=== PATIENT | male | born 1955 | race Caucasian/White ===

== ENCOUNTER → 2020-12-16 | Outpatient (CLI) | payer OTHER ==
[~2020-12-16] MED LIST: IBUP-2076 PO; OMEP20TA2 PO
== END | disposition home or self-care (01) ==
LOC: RAH 14:42
PROVIDERS: ATTEND Family Medicine
DX: Z13.6 Encounter for screening for cardiovascular disorders (principal)
CPT/HCPCS: 75571

== ENCOUNTER → 2021-01-05 | Outpatient (CLI) | payer MEDICARE ==
[~2021-01-05] VITALS: Ht 177.8 cm; Wt 92.1 kg
[~2021-01-05] MED LIST changes: +REGADENOSON 0.4 MG/5 ML PF SYG IVP SCH
== END | disposition home or self-care (01) ==
LOC: SHCH 08:21
PROVIDERS: ATTEND Internal Medicine Cardiovascular Disease
DX: I25.10 Atherosclerotic heart disease of native coronary artery without angina pectoris (principal); R06.02 Shortness of breath; I10 Essential (primary) hypertension
CPT/HCPCS: 78452; 93017; 96374; A9500 ×2

== ENCOUNTER 2021-02-16 06:00 | Day surgery (SDC) | payer MEDICARE ==
[2021-02-13 10:50] LABS: BASOPHILS % (AUTO) 0.8 % (0.0-5.0); EOSINOPHILS % (AUTO) 2.9 % (0.0-8.0); HEMATOCRIT 41.8 % (42-54); LYMPHOCYTES % (AUTO) 27.7 % (21.0-51.0); MEAN CORPUSCULAR HEMOGLOBIN 28.8 pg (27.0-33.0); MEAN CORPUSCULAR HGB CONC 32.8 g/dL (32.0-36.0); MEAN CORPUSCULAR VOLUME 87.8 fL (79-99); MONOCYTES % (AUTO) 6.7 % (3.0-13.0); NEUTROPHILS % (AUTO) 61.7 % (40.0-77.0); PLATELET COUNT (AUTO) 250 K/uL (130-400); RED BLOOD CELL COUNT(AUTO) 4.76 MIL/uL (4.50-6.20); RED CELL DISTRIBUTION WIDTH 12.5 % (11.0-15.5); WHITE BLOOD COUNT (AUTO) 6.1 K/uL (4.8-10.8)
[2021-02-13 10:55] LABS: APPEARANCE,URINE Clear (CLEAR); BILIRUBIN,URINE Negative (NEGATIVE); COLOR,URINE Yellow (YELLOW); GLUCOSE, URINE (UA) Negative (NEGATIVE); KETONES,URINE Negative (NEGATIVE); LEUKOCYTE ESTERASE ,URINE Negative (NEGATIVE); NITRATE,URINE Negative (NEGATIVE); OCCULT BLOOD,URINE Negative (NEGATIVE); PROTEIN,URINE Negative (NEGATIVE)
[2021-02-13 11:02] LABS: CREATININE 1.1 mg/dL (0.5-1.5); POTASSIUM 4.6 mmol/L (3.5-5.1)
[2021-02-13 11:04] LABS: PROTHROMBIN TIME 10.9 SEC (9.6-11.6)
[2021-02-13 11:05] LABS: PARTIAL THROMBOPLASTIN TIME 27.3 SEC (26.3-35.5)
[~2021-02-16] VITALS: Ht 177.8 cm; Wt 91.4 kg
[2021-02-16] VITALS (10 sets, daily range): BP systolic 135–177; BP diastolic 82–99
[~2021-02-16 06:00] MED LIST changes: +ATOR40TA71 PO; -IBUP-2076 PO; +LOSA50TA64 PO; +METO-391 PO; -OMEP20TA2 PO; -REGADENOSON 0.4 MG/5 ML PF SYG IVP SCH
[2021-02-16] MEDS ORDERED: SODIUM CHLORIDE 0.9% 1000ML 1,000 ML IV ONE (06:11)
[2021-02-16] MEDS ORDERED: HEPARIN SODIUM 1000UNIT/ML 10ML VIAL ONE (07:13)
[2021-02-16] MEDS ORDERED: IOHEXOL 350 MG/ML 100ML INFUS..BTL IV ONE (07:13)
[2021-02-16] MEDS ORDERED: LIDOCAINE HCL 400MG/20ML VIAL ONE (07:13)
[2021-02-16] MEDS ORDERED: IOHEXOL-350 50ML VIAL IV ONE (07:13)
[2021-02-16] MEDS ORDERED: MIDAZOLAM HCL 1 MG/ML 2ML VIAL ONE (07:29)
== END 2021-02-16 12:10 | disposition home or self-care (01) ==
LOC: DAH 06:00
PROVIDERS: ATTEND Internal Medicine Cardiovascular Disease
DX: I25.118 Atherosclerotic heart disease of native coronary artery with other forms of angina pectoris (principal); I10 Essential (primary) hypertension; E78.5 Hyperlipidemia, unspecified; Z79.899 Other long term (current) drug therapy; Z98.890 Other specified postprocedural states; Z79.01 Long term (current) use of anticoagulants
CPT/HCPCS: 36415; 71045; 80048; 81003; 85025; 85610; 85730; 93005; 93458; A4215; A4216; A4221; A4222; A4223 ×3; A4606; A4663; C1760; C1894; J1644; J2250; J3490; J7030; Q9965; Q9967 ×2; 99156; 99157

== ENCOUNTER → 2023-12-20 | Outpatient (CLI) | payer MEDICARE | END | disposition home or self-care (01) | LOC: RAH 13:39 | PROVIDERS: ATTEND Family Medicine | DX: M47.816 Spondylosis without myelopathy or radiculopathy, lumbar region (principal); M48.062 Spinal stenosis, lumbar region with neurogenic claudication; M51.37 Other intervertebral disc degeneration, lumbosacral region; M51.26 Other intervertebral disc displacement, lumbar region; M71.38 Other bursal cyst, other site | CPT/HCPCS: 72148 ==

== ENCOUNTER 2024-04-20 05:57 | Day surgery (SDC) | payer MEDICARE ==
[2024-04-18 12:33] VITALS: BP 133/83; PULSE 79; RESP 18
[2024-04-18 12:36] LABS: BASOPHILS # (AUTO) 0.06 K/uL (0.00-0.20); BASOPHILS % (AUTO) 0.7 % (0.0-5.0); EOSINOPHILS # (AUTO) 0.23 K/uL (0.00-0.70); EOSINOPHILS % (AUTO) 2.8 % (0.0-8.0); HEMATOCRIT 43.7 % (42-54); IMMATURE GRANULOCYTE ABSOLUTE 0.02 K/uL (0-1); LYMPHOCYTES # (AUTO) 1.9 K/uL (1.0-4.8); LYMPHOCYTES % (AUTO) 22.6 % (21.0-51.0); MEAN CORPUSCULAR HEMOGLOBIN 29.7 pg (27.0-33.0); MEAN CORPUSCULAR HGB CONC 34.3 g/dL (32.0-36.0); MEAN CORPUSCULAR VOLUME 86.5 fL (79-99); MONOCYTES # (AUTO) 0.6 K/uL (0.1-1.0); MONOCYTES % (AUTO) 7.3 % (3.0-13.0); NEUTROPHILS # (AUTO) 5.5 K/uL (1.8-7.7); NEUTROPHILS % (AUTO) 66.4 % (40.0-77.0); PLATELET COUNT (AUTO) 272 K/uL (130-400); RED BLOOD CELL COUNT(AUTO) 5.05 MIL/uL (4.50-6.20); RED CELL DISTRIBUTION WIDTH 12.1 % (11.0-15.5); WHITE BLOOD COUNT (AUTO) 8.3 K/uL (4.8-10.8)
[2024-04-18 12:41] LABS: APPEARANCE,URINE CLEAR (CLEAR); BILIRUBIN,URINE NEGATIVE (NEGATIVE); COLOR,URINE YELLOW (YELLOW); GLUCOSE, URINE (UA) NEGATIVE (NEGATIVE); KETONES,URINE NEGATIVE (NEGATIVE); LEUKOCYTE ESTERASE ,URINE NEGATIVE Leu/uL (NEGATIVE); NITRATE,URINE NEGATIVE (NEGATIVE); OCCULT BLOOD,URINE NEGATIVE (NEGATIVE); PH,URINE 5.5 (5.0-8.0); PROTEIN,URINE NEGATIVE (NEGATIVE); UROBILINOGEN,URINE 0.2 mg/dL (0.2-1.0)
[2024-04-18 12:43] LABS: ADD UA MICROSCOPIC NO
[2024-04-18 12:45] LABS: CREATININE 1.1 mg/dL (0.5-1.3); POTASSIUM 4.3 mmol/L (3.5-5.1)
[2024-04-18 12:49] LABS: INR 0.96 (0.85-1.15); PROTHROMBIN TIME 10.4 SEC (9.6-11.6)
[2024-04-18 12:50] LABS: PARTIAL THROMBOPLASTIN TIME 26.2 SEC (26.3-35.5)
[2024-04-18 13:06] LABS: B-TYPE NATRIURETIC PEPTIDE 12 pg/mL (0-100)
[2024-04-20] VITALS (13 sets, daily range): BP systolic 114–158; BP diastolic 74–89; PULSE 55–79; RESP 16–19
[~2024-04-20] VITALS: Ht 177.8 cm; Wt 93.8 kg
[~2024-04-20 05:57] MED LIST changes: +AMLO-258 PO; -ATOR40TA71 PO; +BUSP15TA3 PO; +LOSA100T59 PO; -LOSA50TA64 PO; -METO-391 PO
[2024-04-20] MEDS ORDERED: LIDOCAINE HCL 400MG/20ML VIAL ONE (07:10)
[2024-04-20] MEDS ORDERED: IOHEXOL 350 MG/ML 100ML INFUS..BTL IV ONE (07:14)
[2024-04-20] MEDS ORDERED: MIDAZOLAM HCL 1 MG/ML 2ML VIAL ONE (07:31)
[2024-04-20] MEDS ORDERED: FENTANYL CITRATE PF 50 MCG/1 ML 2ML VIAL ONE (07:31)
[2024-04-20] MEDS ORDERED: HEPARIN 10,000 UNIT/10ML (1,000 UNIT/ML) VIAL ONE (07:52)
[2024-04-20] MEDS ORDERED: BIVALIRUDIN 250 MG/VIAL IV ONE (07:52)
== END 2024-04-20 13:16 | disposition home or self-care (01) ==
LOC: DAH 05:57
PROVIDERS: ATTEND Internal Medicine Cardiovascular Disease
DX: I25.118 Atherosclerotic heart disease of native coronary artery with other forms of angina pectoris (principal); R94.39 Abnormal result of other cardiovascular function study; E78.5 Hyperlipidemia, unspecified; I10 Essential (primary) hypertension; M10.9 Gout, unspecified; Z88.0 Allergy status to penicillin; Z88.1 Allergy status to other antibiotic agents; Z79.01 Long term (current) use of anticoagulants; Z79.899 Other long term (current) drug therapy
CPT/HCPCS: 80048; 83880; 85025; 85610; 85730; 81003; 36415; 71045; 93005; 93458; C1894; C1760; Q9965; J3490; J2250; J1644; Q9967; A4215; A4222; A4221; A4663; A4216; A4606; A4223 ×3; 99156; 99157; J0583; J3010

== ENCOUNTER → 2024-07-13 | Outpatient (CLI) | payer MEDICARE ==
[~2024-07-13] MED LIST changes: +AEC81 PO; -AMLO-258 PO; -LOSA100T59 PO
--- NOTE | 2024-07-13 18:40 | HMCSR ---
APPROVED REPORT Right Upper Extremity Venous Study for DVT. Vein Imaging IJV (L): Normal flow, augmentation and compression. No evidence of DVT. SCV (L): Normal flow, augmentation and compression. No evidence of DVT.Normal flow, augmentation and compression. No evidence of DVT. Axillary (L): Normal flow, augmentation and compression. No evidence of DVT. Brachial (L): Normal flow, augmentation and compression. No evidence of DVT. Basilic (L): Compressible, Cephalic (L): Compressible Radial (L): Normal flow, augmentation and compression. No evidence of DVT. Ulnar (L): Normal flow, augmentation and compression. No evidence of DVT. Technologist Impression The deep veins of the right upper extremity appear patent and compressible without evidence of thromb us. Asymmetric doppler waveforms noted on the contralateral side compared to the right. Conclusion As above. Conclusion As above.
== END | disposition home or self-care (01) ==
LOC: SHCH 14:46
PROVIDERS: ATTEND Internal Medicine Cardiovascular Disease
DX: I72.4 Aneurysm of artery of lower extremity (principal); I82.621 Acute embolism and thrombosis of deep veins of right upper extremity; E78.5 Hyperlipidemia, unspecified; R06.00 Dyspnea, unspecified; R94.39 Abnormal result of other cardiovascular function study; I25.118 Atherosclerotic heart disease of native coronary artery with other forms of angina pectoris; I10 Essential (primary) hypertension
CPT/HCPCS: 93971

== ENCOUNTER → 2024-07-27 | Outpatient (CLI) | payer MEDICARE ==
--- NOTE | 2024-07-30 08:13 | HMCSR ---
APPROVED REPORT EXAM: Two-dimensional and M-mode echocardiogram with Doppler and color Doppler. INDICATION ICD: I20.8 Other forms of angina pectoris Surgery/Intervention CABG: Date: 2023 2D Dimensions RVDd4.3 cmLVEF(%)40.3 (>50%)LVED Vol(simp.)175.0 mL IVSd1.0 (0.7-1.1cm)FS(%)20 %LVES Vol(simp.)114.0 mL LVDd5.0 (3.8-5.6cm)Ao Root(2D)3.9 (2.0-3.7cm)LVEF(%, simp.)35 % PWd1.0 (0.7-1.1cm)LVOT diam2.2 (1.8-2.4cm)LA ESV INDEX (BP)26.06 mL/m2 LVDs4.0 (2.5-4.0cm)IVC diam2.1 cm Aortic Valve AoV Vmax1.3 m/[place] GR6.6 mmHgLVOT Vmax0.8 m/s AoV VTI0.2 mAo Mean GR3.8 mmHgLVOT VTI0.15 m LOBO (VMAX)2.4 cm2AVA (VTI) 2.4 cm2 Mitral Valve MV E Vmax38.8 cm/sDECEL Edra774 ms MV A Vmax74.0 cm/sP 1/2 T96 ms E/A ratio0.5MVA (PHT)2.3 cm2 MR Max PG29 mmHg TDI E/E' Medial6.7E/E' Lateral3.9 Pulmonary Valve PV Vmax1.0 m/sPV VTI0.18 mPV Mean GR2 mmHg PV Peak GR3.8 mmHg Tricuspid Valve RAP (EST) 8 mmHg Left Ventricle Left ventricular cavity size is normal.. Hypokinetic anterior, apical and septal hernandez. There is norm al left ventricular wall thickness. LVEF is 30-35%. Grade 1 diastolic dysfunction Right Ventricle The right ventricle is mildly dilated. Right ventricular systolic function is moderately to severely reduced. Atria The left atrium size is normal. The right atrium size is normal. Aortic Valve Aortic valve is trileaflet. Aortic valve leaflets are sclerotic but open well. Trace aortic regurgita tion. There is no aortic valvular stenosis. Mitral Valve Mitral valve leaflets are mildly sclerotic but open well. Mitral regurgitation is trace to mild. Ther e is no mitral valve stenosis. Tricuspid Valve The tricuspid valve leaflets appear normal. There is trace tricuspid regurgitation. Pulmonic Valve The pulmonic valve leaflets are thin and pliable; valve motion is normal. There is trace pulmonic mark vular regurgitation. Great Vessels Aortic root is mildly dilated. IVC is dilated and collapses >50% with inspiration. Pericardium No pericardial effusion. Conclusion LVEF is 30-35%. Hypokinetic anterior, apical and septal hernandez. Mitral regurgitation is trace to mild.
== END | disposition home or self-care (01) ==
LOC: SHCH 15:13
PROVIDERS: ATTEND Internal Medicine Cardiovascular Disease
DX: I08.0 Rheumatic disorders of both mitral and aortic valves (principal); I20.89 Other forms of angina pectoris; Z95.1 Presence of aortocoronary bypass graft
CPT/HCPCS: 93306

== ENCOUNTER → 2024-07-31 | Outpatient (CLI) | payer MEDICARE ==
[2024-07-31 12:25] LABS: CREATININE 1.2 mg/dL (0.5-1.3); POTASSIUM 4.5 mmol/L (3.5-5.1)
== END | disposition home or self-care (01) ==
LOC: LAB 08:09
PROVIDERS: ATTEND Internal Medicine Cardiovascular Disease
DX: I10 Essential (primary) hypertension (principal)
CPT/HCPCS: 36415; 80048

== ENCOUNTER 2024-08-10 09:32 | Day surgery (SDC) | payer MEDICARE ==
[2024-08-09 13:32] VITALS: BP 100/65; PULSE 75; RESP 18; TEMP 97.7
[2024-08-09 13:34] LABS: BASOPHILS # (AUTO) 0.06 K/uL (0.00-0.20); BASOPHILS % (AUTO) 0.6 % (0.0-5.0); EOSINOPHILS # (AUTO) 0.15 K/uL (0.00-0.70); EOSINOPHILS % (AUTO) 1.6 % (0.0-8.0); HEMATOCRIT 44.3 % (42-54); IMMATURE GRANULOCYTE ABSOLUTE 0.04 K/uL (0-1); LYMPHOCYTES # (AUTO) 1.7 K/uL (1.0-4.8); LYMPHOCYTES % (AUTO) 18.2 % (21.0-51.0); MEAN CORPUSCULAR HEMOGLOBIN 27.9 pg (27.0-33.0); MEAN CORPUSCULAR HGB CONC 32.3 g/dL (32.0-36.0); MEAN CORPUSCULAR VOLUME 86.4 fL (79-99); MONOCYTES # (AUTO) 0.6 K/uL (0.1-1.0); MONOCYTES % (AUTO) 6.5 % (3.0-13.0); NEUTROPHILS # (AUTO) 6.7 K/uL (1.8-7.7); NEUTROPHILS % (AUTO) 72.7 % (40.0-77.0); PLATELET COUNT (AUTO) 303 K/uL (130-400); RED BLOOD CELL COUNT(AUTO) 5.13 MIL/uL (4.50-6.20); RED CELL DISTRIBUTION WIDTH 13.8 % (11.0-15.5); WHITE BLOOD COUNT (AUTO) 9.3 K/uL (4.8-10.8)
[2024-08-09 13:44] LABS: CREATININE 1.4 mg/dL (0.5-1.3); POTASSIUM 4.8 mmol/L (3.5-5.1)
[2024-08-09 13:46] LABS: INR 0.98 (0.85-1.15); PROTHROMBIN TIME 10.6 SEC (9.6-11.6)
[2024-08-09 13:48] LABS: PARTIAL THROMBOPLASTIN TIME 25.9 SEC (26.3-35.5)
[2024-08-10] VITALS (9 sets, daily range): BP systolic 107–120; BP diastolic 71–80; PULSE 67–71; RESP 16–17; TEMP 97.2–98.1
[~2024-08-10] VITALS: Ht 177.8 cm; Wt 88.0 kg
[~2024-08-10 09:32] MED LIST changes: +AMIO200T68 PO; +ATOR20TA65 PO; -BUSP15TA3 PO; +BUSP5TAB3 PO; +DAPA10TA PO; +FURO40TA5 PO; +METO-408 PO; +SACU1TAB PO; +SPIR25TA6 PO; +VANCOMYCIN 1G/250ML KIT 250 ML IV SCH
[2024-08-10] MEDS: 0.9%NACL 1000ML 1,000 ML IV SCH (11:08)
[2024-08-10] MEDS ORDERED: LIDOCAINE HCL 1% MDV 50ML VIAL ONE (14:08)
[2024-08-10] MEDS ORDERED: ceFAZolin SODIUM 1 GM VIAL ONE (14:09)
[2024-08-10] MEDS ORDERED: BUPIvacaine/PF 0.25% 30ML VIAL IJ ONE (14:09)
[2024-08-10] MEDS ORDERED: VANCOMYCIN 1G/250ML KIT 500 ML IV ONE (14:22)
[2024-08-10] MEDS ORDERED: MIDAZOLAM HCL 1 MG/ML 2ML VIAL ONE ×3 (14:42→14:57)
[2024-08-10] MEDS ORDERED: MEPERIDINE-PF 25 MG/ML SYG ONE ×3 (14:42→14:57)
[2024-08-10] MEDS ORDERED: TRAM50TA4 PO (15:57)
[2024-08-10] MEDS ORDERED: acetaMINOPHEN 500 MG TABLET PO PRN (16:00)
[2024-08-10] MEDS ORDERED: acetaMINOPHEN WITH coDEINE 1 TAB TAB PO PRN (16:00)
--- NOTE | 2024-08-10 17:56 | NUR ---
NOTIFIED DR. HORTON OF DRESSING HAVING BLOOD/SEROUS SANGUINEOUS BLOOD ON DRESSING, ORDERED TO CHANGE DRESSING. NO BLEEDING ON INSIDE OF DRESSING.
--- NOTE | 2024-08-10 21:44 | HMCIMG ---
CHEST 1VW CLINICAL HISTORY: s/p ICD COMPARISON: 05/24/2024 TECHNIQUE: Single view of the chest was obtained. FINDINGS: Lungs are clear. The cardiac size unremarkable. There is been interval placement of a pacemaker with interrupted leads. Again demonstrated is change prior median sternotomy. IMPRESSION: There is no identified complication status post pacemaker placement.
--- NOTE | 2024-08-12 17:02 | EKG ---
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1955 Requested By: HUGO HORTON Order Number: [id number] Reading MD: Leonel Rebolledo Measurements Intervals [place] Rate: 56 P: 37 ME: 222 QRS: -18 QRSD: 88 T: 54 QT: 470 QTc: 453 Interpretive Statements Sinus bradycardia with 1st degree AV block Low voltage QRS Inferior infarct , age undetermined Anterolateral infarct , age undetermined Compared to ECG 05/18/2024 20:16:02 First degree AV block now present Low QRS voltage now present Sinus tachycardia no longer present Myocardial infarct finding still present Electronically Signed On 08-12-2024 17:36:44 SCALE TESTER by Leonel Rebolledo Please click the below link to view image of tracing.
== END 2024-08-10 18:14 | disposition home or self-care (01) ==
LOC: DAH 09:32
PROVIDERS: ATTEND Internal Medicine Cardiovascular Disease
DX: I25.5 Ischemic cardiomyopathy (principal); I50.42 Chronic combined systolic (congestive) and diastolic (congestive) heart failure; I44.0 Atrioventricular block, first degree; I25.10 Atherosclerotic heart disease of native coronary artery without angina pectoris; E78.5 Hyperlipidemia, unspecified; M10.9 Gout, unspecified; Z85.46 Personal history of malignant neoplasm of prostate; I47.29 Other ventricular tachycardia; Z79.01 Long term (current) use of anticoagulants; Z95.1 Presence of aortocoronary bypass graft; Z98.890 Other specified postprocedural states; Z79.82 Long term (current) use of aspirin; Z79.899 Other long term (current) drug therapy
CPT/HCPCS: 80048; 85025; 85610; 85730; 36415; 33249; 71045; 93005; C1721; C1896; C1895; J7030; J0665; J2250 ×3; J3370; J2175 ×3; J3490; A4215; A6251; A4222; A4221; A4663; A4216; A6258; A4606; A4223 ×3; 99156; 99157; J0690

== ENCOUNTER → 2025-04-24 | Outpatient (CLI) | payer MEDICARE ==
[~2025-04-24] MED LIST changes: -AMIO200T68 PO; +AMIO200T73 PO; +TRAM50TA4 PO; -VANCOMYCIN 1G/250ML KIT 250 ML IV SCH
== END | disposition home or self-care (01) ==
LOC: RESP 18:37
PROVIDERS: ATTEND Internal Medicine Cardiovascular Disease
DX: R06.00 Dyspnea, unspecified (principal); Z79.899 Other long term (current) drug therapy
CPT/HCPCS: 94060; 94729

== ENCOUNTER 2025-05-16 14:12 | Emergency (ER) | payer MEDICARE ==
[~2025-05-16] VITALS: Ht 177.8 cm; Wt 92.5 kg
[2025-05-16 16:09] LABS: IMMATURE GRANULOCYTE ABSOLUTE 0.03 K/uL (0-1); NUCLEATED RED BLOOD CELLS 0.0 % (0.0-0.19); PLATELET COUNT (AUTO) 211 K/uL (130-400); RED BLOOD CELL COUNT(AUTO) 5.51 MIL/uL (4.50-6.20); RED CELL DISTRIBUTION WIDTH 12.7 % (11.0-15.5); WHITE BLOOD COUNT (AUTO) 9.1 K/uL (4.8-10.8)
[2025-05-16 16:23] LABS: CREATININE 1.3 mg/dL (0.5-1.3); GLOMERULAR FILTR. RATE CALC 59.0 mL/min (>90); GLUCOSE,RANDOM 103.0 mg/dL (70-105); SODIUM SERUM 138.0 mmol/L (136-145); UREA NITROGEN, BLOOD 27.0 mg/dL (7-18)
[2025-05-16 16:29] LABS: CREATINE KINASE, TOTAL 79.0 U/L (21-232)
--- NOTE | 2025-05-16 17:15 | HMCIMG ---
EXAM: CT Head Without IV contrast. CLINICAL HISTORY: POSSIBLE SEIZURE TECHNIQUE: Axial computed tomography images of the head/brain without intravenous contrast. COMPARISON: None provided. FINDINGS: BRAIN: No evidence of acute hemorrhage. No mass lesion. No CT evidence for acute territorial infarct. No midline shift or extra-axial collections. VENTRICLES: No hydrocephalus. ORBITS: The orbits are unremarkable. SINUSES AND MASTOIDS: The paranasal sinuses and mastoid air cells are clear. BONES: No fracture. SOFT TISSUES: Unremarkable. IMPRESSION: No acute intracranial abnormality. /[place]
[2025-05-16 17:30] VITALS: BP 133/89; PULSE 80; RESP 20; TEMP 97.9; O2SAT 99
[2025-05-16] MEDS: SODIUM ZIRCONIUM CYCLOSILICATE 5 GM POWD.PACK PO ONE (17:34)
--- NOTE | 2025-05-16 17:50 | ERN ---
General Chief Complaint: Other Problems Stated Complaint: POSSIBLE SEIZURE Time Seen by MD: 15:06 Time Seen by Midlevel: 15:06 Source: patient History of Present Illness Initial Comments Patient is a 70-year-old male presenting to the emergency department nonspecific complaints. According to the patient he had three episodes where he believes may potentially been a seizure. The latest episode occurred while he was driving. According to who is at bedside the patient was driving when he had a blank stare. However, the patient was responding to questions during this time and never had seizure-like activity. On arrival he reports feeling improved. Allergies: Coded Allergies: Quinolones (Unverified Allergy, Severe, ANGIOEDEMA, HIVES, 05/18/24) Penicillins (Unverified Allergy, Unknown, RASH, 05/18/24) Home Meds Active Scripts Tramadol Hcl (Tramadol HCl) 50 Mg Tablet, 50 MG PO Q6D PRN for PAIN, #15 TAB 0 Refills Prov:HUGO HORTON MD 08/10/24 Reported Medications Atorvastatin Calcium (Atorvastatin Calcium) 20 Mg Tablet, 20 MG PO DAILY, TAB 08/09/24 Dapagliflozin Propanediol (Farxiga) 10 Mg Tablet, 10 MG PO DAILY, TAB 08/09/24 Metoprolol Succinate (Metoprolol Succinate) 25 Mg Tab.er.24h, 12.5 MG PO DAILY, TAB 08/09/24 Amiodarone HCl (Amiodarone HCl) 200 Mg Tablet, 200 MG PO DAILY, TAB 08/09/24 Furosemide (Furosemide) 40 Mg Tablet, 40 MG PO DAILY, TAB 08/09/24 Sacubitril/Valsartan (Entresto 24 mg-26 mg Tablet) 24 Mg-26 Mg Tablet, 1 EACH PO BID, TAB 08/09/24 Spironolactone (Spironolactone) 25 Mg Tablet, 25 MG PO DAILY, TAB 08/09/24 Buspirone HCl (Buspirone HCl) 5 Mg Tablet, 2.5 MG PO BID, TAB 08/09/24 Aspirin (ASPIRIN 81 MG ECTAB) 81 Mg Ectab, 81 MG PO HS, TAB.EC 05/17/24 Past Medical History Past Medical History: Hypertension Past Surgical History: Other Surgical History Other: PROSTATES SX, ROS Dictation CONSTITUTIONAL: Negative except for HPI HEAD/FACE: Negative except for HPI EENT: Negative except for HPI RESPIRATORY: Negative except for HPI GASTROINTESTINAL/ABDOMINAL: Negative except for HPI GENITOURINARY: Negative except for HPI MUSCULOSKELETAL: Negative except for HPI INTEGUMENTARY: Negative except for HPI NEUROLOGICAL/PSYCH: Negative except for HPI HEMATOLOGIC/LYMPHATIC: Negative except for HPI All Systems Negative, Except as noted above. 13 point review of systems assessed and all negative except for above. Physical Exam Physical Exam Dictation Vital Signs reviewed General Appearance: Alert, oriented x 3, no acute distress, well developed, nourished. Head and Face: non-traumatic. Eyes: PERRL, pink conjunctivas, eyelid no trauma, anterior chamber with arcus senilis. Ears: Pinnas intact and no signs of trauma or erythema ear canals clear and no discharge TM no erythema Nose: No discharge, no bleeding. Oropharynx: Mouth normal, tongue pink, pharynx clear,no erythema, tonsils no exudates, no abscesses noted, mucous membrane moist Neck: Supple, non-tender, no thyromegaly, no masses, no JVD, no bruits Breast:Deferred Chest:No tenderness, no crepitus, no paradoxical movement, no retractions Lungs:Clear, well-ventilated, symmetric, no rales, no wheezing, no rhonchi, no stridor, good breath sounds bilaterally Heart: Regular rate, regular rhythm, no murmur, no gallops Vascular: no peripheral edema, Abdomen: Soft, positive bowel sounds, nondistended, no guarding, nontender, no rebound, no masses no hepatomegaly, no splenomegaly, no Goodrich's sign, no hernias. Rectal: Deferred Genital: Deferred Neurological: Normal speech, motor function intact, sensory function intact Musculoskeletal: Neck nontender, full range of motion, back nontender, full range of motion, Extremities: nontender, full range of motion Skin: Color pink, dry, no turgor, no rash, no lacerations, no abrasions, no contusions. Lymphatic: Deferred Results Laboratory and Microbiology Lab and Micro Result Laboratory Tests Test 05/16/25 16:02 White Blood Count 9.1 K/uL (4.8-10.8) Red Blood Count 5.51 MIL/uL (4.50-6.20) Hemoglobin 16.3 g/dL (14.0-18.0) Hematocrit 49.8 % (42-54) Mean Corpuscular Volume 90.4 fL (79-99) Mean Corpuscular Hemoglobin 29.6 pg (27.0-33.0) Mean Corpuscular Hemoglobin Concent 32.7 g/dL (32.0-36.0) Red Cell Distribution Width 12.7 % (11.0-15.5) Platelet Count 211 K/uL (130-400) Mean Platelet Volume 9.5 fL (7.5-10.5) Immature Granulocyte % (Auto) 0.3 % (0-1) Neutrophils (%) (Auto) 77.5 % (40.0-77.0) H Lymphocytes (%) (Auto) 15.4 % (21.0-51.0) L Monocytes (%) (Auto) 6.1 % (3.0-13.0) Eosinophils (%) (Auto) 0.4 % (0.0-8.0) Basophils (%) (Auto) 0.3 % (0.0-5.0) Neutrophils # (Auto) 7.1 K/uL (1.8-7.7) Lymphocytes # (Auto) 1.4 K/uL (1.0-4.8) Monocytes # (Auto) 0.6 K/uL (0.1-1.0) Eosinophils # (Auto) 0.04 K/uL (0.00-0.70) Basophils # (Auto) 0.03 K/uL (0.00-0.20) Absolute Immature Granulocyte (auto 0.03 K/uL (0-1) Nucleated Red Blood Cells 0.0 % (0.0-0.19) Sodium Level 138 mmol/L (136-145) Potassium Level 5.2 mmol/L (3.5-5.1) H Chloride Level 103 mmol/L (101-111) Carbon Dioxide Level 30 mmol/L (21-32) Blood Urea Nitrogen 27 mg/dL (7-18) H Creatinine 1.3 mg/dL (0.5-1.3) Glomerular Filtration Rate Calc 59 mL/min (>90) Random Glucose 103 mg/dL (70-105) Total Calcium 9.2 mg/dL (8.5-10.1) Total Creatine Kinase 79 U/L (21-232) Troponin I High Sensitivity 10 ng/L (4-75) Labs Reviewed?: Yes MDM MDM: Differential diagnosis: Dehydration, electrolyte abnormality, intracranial bleed There are no social concerns with this patient. Prescription drug management Prescriptions will include: None Medical management and examination interpretation discussions were had by me with other qualified healthcare professionals as indicated for the patient's care. ED Course Orders Procedure Category Date Status Time Cbc With Differential LAB 05/16/25 Complete 15:43 Basic Metabolic Panel LAB 05/16/25 Complete 15:43 Creatine Kinase, Total LAB 05/16/25 Complete 15:43 Troponin I High LAB 05/16/25 Complete Sensitivity 15:43 12 Lead Ekg Tracing- EKG 05/16/25 Logged Technical 15:43 Ct Head/Brain W/O CT 05/16/25 Resulted Contrast 15:43 Sodium Zirconium PHA 05/16/25 Complete Cyclosilicate 17:00 Current Medications Medications (Trade) Dose Ordered Sig/Divina Route PRN Reason Start Time Stop Time Status Last Admin Dose Admin Sodium Zirconium Cyclosilicate (Lokelma) 5 gm ONCE ONCE PO 05/16/25 17:00 05/16/25 17:01 DC 05/16/25 17:34 Vital Signs Date Time Temp Pulse Resp B/P (MAP) Pulse Ox O2 Delivery O2 Flow Rate FiO2 05/16/25 14:15 98.6 69 16 127/69 95 Room Air [place] [id number] [id number] IMAGING REPORT Signed PATIENT: CRICKET BROWNE MR#: [id number] : 1955 SEX: M AGE: 70 LOCATION: [facility] ORDER [id number] STATUS: REG ER REPORT#: [id number] SERVICE [id number] REASON: POSSIBLE SEIZURE ORDERING PHYSICIAN: MARILYN BARNES PROCEDURE: HEAD WO - CT HEAD/BRAIN W/O CONTRAST EXAM: CT Head Without IV contrast. CLINICAL HISTORY: POSSIBLE SEIZURE TECHNIQUE: Axial computed tomography images of the head/brain without intravenous contrast. COMPARISON: None provided. FINDINGS: BRAIN: No evidence of acute hemorrhage. No mass lesion. No CT evidence for acute territorial infarct. No midline shift or extra-axial collections. VENTRICLES: No hydrocephalus. ORBITS: The orbits are unremarkable. SINUSES AND MASTOIDS: The paranasal sinuses and mastoid air cells are clear. BONES: No fracture. SOFT TISSUES: Unremarkable. IMPRESSION: No acute intracranial abnormality. /[place] DICTATED BY: MARINA SINGH MD DATE: 05/16/251813 ELECTRONICALLY SIGNED BY: MARINA SINGH MD DATE: 05/16/251813 DX & DISP Disposition: Discharge Departure Impression: Primary Impression: Hyperkalemia Condition: Stable Additional Instructions: Your blood work today showed a slightly elevated potassium level. You were given medications to lower your potassium level. The remainder of your blood work is unremarkable. Your CT scan is normal. Your cardiac enzymes are normal. Please follow up primary care doctor tomorrow for repeat evaluation. Referrals: WENCESLAO LUNA MD (PCP) Time of Disposition: 17:48 I have reviewed the case, and I agree with, Diagnosis and Plan I performed the substantive portion of the visit. I have reviewed and personally made and approve the management plan that is documented in the note by myself or the WILDA. I acknowledge for responsibility for the patient's management plan. MARILYN BARNES May 16, 2025 17:50
--- NOTE | 2025-05-17 03:01 | EKG ---
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
== END 2025-05-16 18:15 | disposition home or self-care (01) ==
LOC: EDH 14:12
DX: E87.5 Hyperkalemia (principal); I10 Essential (primary) hypertension; Z79.82 Long term (current) use of aspirin; Z79.84 Long term (current) use of oral hypoglycemic drugs; Z79.899 Other long term (current) drug therapy; Z88.0 Allergy status to penicillin; Z88.8 Allergy status to other drugs, medicaments and biological substances; Z98.890 Other specified postprocedural states
CPT/HCPCS: 36415; 70450; 80048; 82550; 84484; 85025; 93005; 99284